=== PATIENT | female | born 2000 | race Caucasian/White ===

== ENCOUNTER 2020-03-12 23:21 | Observation (INO) ==
[2020-03-12] MEDS ORDERED: THIAMINE INJ 100 MG, FOLIC ACID INJ 1 MG, MAGNESIUM SULF INJ 2 GM, MULTIVITAMIN INJ 10 ... IV ONE (23:55)
[2020-03-12] MEDS ORDERED: ONDANSETRON 4 MG/2 ML VIAL IV STA (23:58)
[2020-03-12] MEDS ORDERED: PANTOPRAZOLE 40 MG VIAL IV STA (23:58)
[2020-03-13 00:11] LABS: Basophils # 0.1 10*3/uL (0.0-0.2); Basophils % 0.6 % (0.0-0.8); Hematocrit 39.4 VOL% (35.7-47.0); Hemoglobin 13.5 GM/DL (12.0-16.0); Immature Granulocytes % 0.4 %; Immature Granulocytes Absolute 0.04 #; Lymphocytes # 2.3 10*3/uL (1.4-4.0); Lymphocytes % 24.5 % (21.3-54.2); Mean Corpuscular HGB Conc 34.3 GM/DL (32-36); Mean Corpuscular Volume 89.7 FL (87-102); Mean Platelet Volume 9.1 FL (9.6-12.0); Monocytes % 6.3 % (1.7-12.7); Neutrophils % 68.2 % (38.7-73.9); Platelet Count 304 T/CUMM (130-400); Red Blood Count 4.39 MC/CUMM (3.8-5.5); Red Cell Distribution Width 11.9 % (9.3-17.3); White Blood Count 9.3 T/CUMM (4-12)
[2020-03-13 00:21] LABS: INR 0.9; PT Patient Result 9.8 SECS (9.8-11.9)
[2020-03-13 00:24] LABS: Barbiturates Screen,Urine Negative (Negative); Benzodiazepines Screen,Urine Negative (Negative); Cannabinoid Screen,Urine Negative (Negative); Opiate Screen,Urine Negative (Negative); Phencyclidine Screen,Urine Negative (Negative)
[2020-03-13 00:30] LABS: Apearance,Urine CLEAR (Clear); Bilirubin,Urine Negative (Negative); Blood, Urine Small mg/dL (Negative); Glucose,Urine (UA) Negative (Negative); Ketones,Urine 5 mg/dL (Negative); Nitrite,Urine Negative (Negative); Protein,Urine Negative; Renal Epithelial Cells,Urine Occasional /HPF (<1); Urine Color Colorless (Yellow); Urine Specific Gravity 1.001 (1.001-1.035); Urine Urobilinogen < 2.0 EU/DL (0.2-1.0)
[2020-03-13 00:34] LABS: Alanine Aminotransferase 55 U/L (13-56); Albumin 3.7 G/DL (3.4-5.0); Alkaline Phosphatase 51 U/L (45-117); Aspartate Amino Transferase 34 U/L (0-37); Blood Urea Nitrogen 5 MG/DL (7-18); Calcium 9.1 MG/DL (8.5-10.1); Estimated Glom Filtration Rate 122 ML/MIN; Glucose 79 MG/DL (74-106); Osmolality,Calculated 276.3 MOS/KG (273-304); Total Protein 7.3 G/DL (6.4-8.3); Troponin I < 0.015 NG/ML (0.00-0.045)
[2020-03-13 00:35] LABS: Acetaminophen < 2.0 UG/ML (10-30); Salicylate < 2.8 MG/DL (2.8-20)
[2020-03-13] MEDS ORDERED: POTASSIUM CHLORIDE RIDER 20 MEQ in PREMIX 1 EACH IV STA (00:49)
[2020-03-13] MEDS ORDERED: POTASSIUM CHLORIDE RIDER 100 ML IV ONE (00:53)
[2020-03-13] MEDS ORDERED: POTASSIUM CHLORIDE RIDER 10 MEQ in PREMIX 1 EACH IV ONE (00:53)
[2020-03-13] MEDS ORDERED: GLUCAGON 1 MG VIAL IM PRN (02:04)
[2020-03-13] MEDS ORDERED: ACETAMINOPHEN 325 MG TABLET PO PRN (02:04)
[2020-03-13] MEDS ORDERED: ALUMINUM/MAGNES/SIMETH MAX STR 30 ML UDCUP PO PRN (02:04)
[2020-03-13] MEDS ORDERED: ONDANSETRON 4 MG/2 ML VIAL IV PRN (02:04)
[2020-03-13] MEDS ORDERED: NICOTINE 21 MG/24 HR PATCH TRANSDERM PRN (02:04)
[2020-03-13] MEDS ORDERED: DEXTROSE 50% 25 GM/50 ML VIAL IV PRN (02:04)
[2020-03-13] MEDS: SODIUM CHLORIDE 0.9% 1,000 ML IV SCH ×2 (03:26→11:16)
[2020-03-13 08:08] LABS: Calcium 7.7 MG/DL (8.5-10.1)
[2020-03-13 12:13] VITALS: BP 110/58
[2020-03-13] MEDS ORDERED: POTASSIUM CHLORIDE 20 MEQ TABLET PO ONE (12:34)
[2020-03-13 13:22] LABS: Calcium 7.6 MG/DL (8.5-10.1); Osmolality,Calculated 272.7 MOS/KG (273-304)
[2020-03-13] MEDS ORDERED: traZODone 50 MG TABLET PO SCH (21:00)
[2020-03-14] MEDS ORDERED: clonazePAM 0.5 MG TABLET PO SCH (09:00)
== END 2020-03-13 15:30 | disposition home or self-care (01) ==
LOC: EDBD → EDUNIT# → N.EDINP 23:21 → N.ED 23:21 → N.EDINP 03-13 02:55 → N.TELES 03-13 03:28
PROVIDERS: ADMIT Internal Medicine; ATTEND Internal Medicine